=== PATIENT | male | born 1960 | race Hispanic/Latino ===

== ENCOUNTER 2017-02-23 16:59 | Emergency (ER) | payer MEDICAID, OTHER ==
[2017-02-23 16:59] VITALS: BMI 20.2
[2017-02-23 17:10] VITALS: BP 123/79; PULSE 99; RESP 15; TEMP 98; O2SAT 97
--- NOTE | 2017-02-23 17:28 | C.PDOC ---
History Of Present Illness 56 year old male presents to the ED requesting alcohol detox. Patient notes he is on the wait list for detox at [facility] and will be accepted in 4 days. He has no physical complaints at this time and denies suicidal ideation, homicidal ideation, depression, or any other complaints at this time. Time Seen by Provider: 02/23/17 17:11 Chief Complaint (Nursing): Substance Abuse History Per: Patient History/Exam Limitations: no limitations Onset/Duration Of Symptoms: Hrs Current Symptoms Are (Timing): Still Present Suicide/Self Injury Attempted (Context): None Modifying Factor(s): Alcohol Associated Symptoms: denies: Depression, Suicidal Thoughts Past Medical History Reviewed: Historical Data, Nursing Documentation, Vital Signs Vital Signs: Last Vital Signs Temp 98 F 02/23/17 17:10 Pulse 99 H 02/23/17 17:10 Resp 15 02/23/17 17:10 BP 123/79 02/23/17 17:10 Pulse Ox 97 02/23/17 17:34 - Medical History PMH: Anxiety, Atrial Fibrillation, Back Problems Surgical History: Back Surgery - [facility] Procedures DETOXIFICATION SERVICES FOR SUBSTANCE ABUSE TREATMENT (09/27/16) Family History: States: Unknown Family Hx - Social History Hx Alcohol Use: Yes Hx Substance Use: No - Immunization History Hx Tetanus Toxoid Vaccination: No Hx Influenza Vaccination: No Hx Pneumococcal Vaccination: No Review Of Systems Except As Marked, All Systems Reviewed And Found Negative. Constitutional: Positive for: Other (+Detox). Negative for: Fever, Chills Cardiovascular: Negative for: Chest Pain Respiratory: Negative for: Shortness of Breath Physical Exam - Physical Exam Appears: Non-toxic, No Acute Distress, Other (+AOB) Skin: Normal Color, Warm, Dry Head: Atraumatic, Normacephalic Eye(s): bilateral: Normal Inspection Oral Mucosa: Moist Chest: Symmetrical Respiratory: No Accessory Muscle Use Extremity: Normal ROM Neurological/Psych: Oriented x3, Normal Speech, No Other (No tremors noted) ED Course And Treatment O2 Sat by Pulse Oximetry: 97 (Room air) Pulse Ox Interpretation: Normal Medical Decision Making Medical Decision Making: Discussed with patient that there are no detox available and information regarding prescreen and detox centers provided. Patient has no signs of acute withdrawal and offers no other complaints. Patient stable for discharge Disposition - Disposition Disposition: HOME/ ROUTINE Disposition Time: 18:00 Condition: STABLE Additional Instructions: Please call [phone] or [phone] to inquire about our Detox availability , may speak to coordinator Whitley Instructions: Abuse of Alcohol (ED) - Clinical Impression Clinical Impression: Alcohol abuse - PA / CENTER MEDICAL DIRECTOR / Resident Statement MD/DO has reviewed & agrees with the documentation as recorded. - Scribe Statement The provider has reviewed the documentation as recorded by the Scribe Anayeli Arauz. All medical record entries made by the Scribe were at my direction and personally dictated by me. I have reviewed the chart and agree that the record accurately reflects my personal performance of the history, physical exam, medical decision making, and the department course for this patient. I have also personally directed, reviewed, and agree with the discharge instructions and disposition.
== END 2017-02-23 18:00 | disposition home or self-care (01) ==
LOC: EDBD → C.ER 16:59
DX: F10.10 Alcohol abuse, uncomplicated (principal); Y90.9 Presence of alcohol in blood, level not specified

== ENCOUNTER 2017-02-23 20:42 | Observation (INO) | payer OTHER ==
[2017-02-23 20:42] VITALS: BMI 20.2
[2017-02-23 21:03] VITALS: TEMP 98.2
--- NOTE | 2017-02-23 21:12 | C.PDOC ---
History Of Present Illness Patient presents to the emergency room requesting detox for ETOH. Patient was here earlier today and started walking home after being discharged, but couldn' t go home. Patient still wants a detox bed but there aren't any available. Patient just wants a place to stay. Patient denies fever, chills, nausea, vomiting, diarrhea, or any other complaints. Time Seen by Provider: 02/23/17 21:12 Chief Complaint (Nursing): Substance Abuse History Per: Patient History/Exam Limitations: no limitations Onset/Duration Of Symptoms: Hrs Current Symptoms Are (Timing): Still Present Suicide/Self Injury Attempted (Context): None Modifying Factor(s): Alcohol Severity: None Associated Symptoms: denies: Suicidal Thoughts, Suicidal Plan Involuntary Hold By: None Recent travel outside of the [place]: No Past Medical History Reviewed: Historical Data, Nursing Documentation, Vital Signs Vital Signs: Last Vital Signs Temp 98.2 F 02/24/17 03:16 Pulse 97 H 02/24/17 03:16 Resp 16 02/24/17 03:16 BP 137/83 02/24/17 03:16 Pulse Ox 98 02/24/17 03:16 - Medical History PMH: Anxiety, Atrial Fibrillation, Back Problems Denies: Diabetes, Hepatitis, HIV, HTN, Chronic Kidney Disease, Seizures, Sexually Transmitted Disease Surgical History: Back Surgery - [facility] Procedures DETOXIFICATION SERVICES FOR SUBSTANCE ABUSE TREATMENT (09/27/16) Family History: States: Unknown Family Hx - Social History Hx Alcohol Use: Yes Hx Substance Use: No - Immunization History Hx Tetanus Toxoid Vaccination: No Hx Influenza Vaccination: No Hx Pneumococcal Vaccination: No Review Of Systems Constitutional: Positive for: Other (Requesting ETOH detox). Negative for: Fever, Chills Gastrointestinal: Negative for: Nausea, Vomiting, Diarrhea Physical Exam - Physical Exam Appears: Non-toxic, No Acute Distress Skin: Warm, Dry Extremity: Normal ROM, No Tenderness Neurological/Psych: Oriented x3, Normal Speech, Normal Cognition ED Course And Treatment O2 Sat by Pulse Oximetry: 100 Pulse Ox Interpretation: Normal Progress Note: Patient is requesting detox for ETOH. There aren't any beds available. Patient just wants a place to stay. Reevaluation Time: 05:54 Reassessment Condition: Improved ED OBSERVATION Discharge: Yes Date of observation admission: 02/23/17 Time of observation admission: 21:15 - Observation admission statement Patient is being placed in observation because:: homeless - Goals of Observation Goals of observation are:: social service - Progress Note Progress Note: 02/23/17 21:15 vitals stable, no complaints 02/23/17 23:16 no complaints 02/24/17 01:14 vitals stable Disposition Counseled Patient/Family Regarding: Studies Performed, Diagnosis, Need For Followup - Disposition Disposition: HOME/ ROUTINE Disposition Time: 21:12 Condition: FAIR - Clinical Impression Clinical Impression: Alcohol abuse, Alcohol dependence - Scribe Statement The provider has reviewed the documentation as recorded by the Deejay Beckham Provider Scribe Attestation: All medical record entries made by the Deejay were at my direction and personally dictated by me. I have reviewed the chart and agree that the record accurately reflects my personal performance of the history, physical exam, medical decision making, and the department course for this patient. I have also personally directed, reviewed, and agree with the discharge instructions and disposition. Decision To Admit - . Patient Diagnosis: Alcohol dependence, Alcohol abuse
[2017-02-24 03:17] VITALS: RESP 16
[2017-02-24 06:08] VITALS: BP 138/86; PULSE 98; O2SAT 97
== END 2017-02-24 05:57 | disposition home or self-care (01) ==
LOC: EDBD → C.ER 20:42 → C.9OBSV 21:14
PROVIDERS: ADMIT Emergency Medicine; ATTEND Emergency Medicine
DX: F10.220 Alcohol dependence with intoxication, uncomplicated (principal); Y90.9 Presence of alcohol in blood, level not specified; Z59.0 Homelessness; I48.91 Unspecified atrial fibrillation
CPT/HCPCS: 82948; 99285; G0378

== ENCOUNTER 2017-05-07 17:26 | Inpatient (IN) | payer MEDICAID, OTHER ==
[2017-05-07 17:27] VITALS: BMI 20.2
[2017-05-07 18:16] LABS: BASO # 0.1 K/uL (0.0-0.2); BASO % 0.7 % (0.0-2.0); EOS # 0.1 K/uL (0.0-0.7); EOS % 1.1 % (0.0-4.0); HEMOGLOBIN 14.3 g/dL (12.0-18.0); LYMPH % 30.9 % (20.0-40.0); MEAN CORPUSCULAR HEMOGLOBIN 32.8 pg (27.0-31.0); MEAN CORPUSCULAR HGB CONC 34.2 g/dL (33.0-37.0); MEAN PLATELET VOLUME 7.3 fL (7.2-11.7); MONO # 0.8 K/uL (0.0-0.8); MONO % 8.1 % (0.0-10.0); NEUT # 5.8 K/uL (1.8-7.0); NEUT % 59.2 % (50.0-75.0); RBC 4.36 Mil/uL (4.40-5.90); RED CELL DISTRIBUTION WIDTH 13.7 % (11.5-14.5); WHITE BLOOD COUNT 9.7 K/uL (4.8-10.8)
[2017-05-07 18:18] LABS: URINE BILIRUBIN NEGATIVE (NEGATIVE); URINE BLOOD NEGATIVE (NEGATIVE); URINE CLARITY Clear (Clear); URINE COLOR Straw (YELLOW); URINE GLUCOSE (UA) NORMAL (Normal); URINE LEUKOCYTE ESTERASE NEG Leu/uL (Negative); URINE NITRATE NEGATIVE (NEGATIVE); URINE PROTEIN NEGATIVE (NEGATIVE); URINE UROBILINOGEN NORMAL mg/dL (0.2-1.0)
--- NOTE | 2017-05-07 18:23 | C.PDOC ---
History Of Present Illness Patient is a 56 y/o male that presents to the ED requesting detox from alcohol. Patient is pre-screened for detox. Patient states his last drink was this morning. Patient complains of depression, and panic attacks due to personal stressor. Otherwise, denies any physical complaints at this time. Pt denies having any withdrawal seizures in the past. Time Seen by Provider: 05/07/17 18:00 Chief Complaint (Nursing): Substance Abuse History Per: Patient History/Exam Limitations: no limitations Onset/Duration Of Symptoms: Gradual Current Symptoms Are (Timing): Still Present Suicide/Self Injury Attempted (Context): None Modifying Factor(s): Alcohol Severity: None Pain Scale Rating Of: 0 Associated Symptoms: Depression. denies: Suicidal Thoughts Involuntary Hold By: None Recent travel outside of the [place]: No Additional History Per: Patient Past Medical History Reviewed: Historical Data, Nursing Documentation, Vital Signs Vital Signs: Last Vital Signs Temp 98.1 F 05/07/17 17:30 Pulse 116 H 05/07/17 17:30 Resp 16 05/07/17 17:30 BP 122/86 05/07/17 17:30 Pulse Ox 98 05/07/17 18:26 - Medical History PMH: Anxiety, Atrial Fibrillation, Back Problems Denies: Diabetes, Hepatitis, HIV, HTN, Chronic Kidney Disease, Seizures, Sexually Transmitted Disease Surgical History: Back Surgery - [facility] Procedures DETOXIFICATION SERVICES FOR SUBSTANCE ABUSE TREATMENT (09/27/16) Family History: States: Unknown Family Hx - Social History Hx Alcohol Use: Yes Hx Substance Use: No - Immunization History Hx Tetanus Toxoid Vaccination: No Hx Influenza Vaccination: No Hx Pneumococcal Vaccination: No Review Of Systems Except As Marked, All Systems Reviewed And Found Negative. Constitutional: Negative for: Fever, Chills Cardiovascular: Negative for: Chest Pain, Palpitations Respiratory: Negative for: Shortness of Breath Gastrointestinal: Negative for: Nausea, Vomiting, Abdominal Pain Neurological: Negative for: Weakness, Numbness, Seizures, Headache, Dizziness Psych: Positive for: Anxiety, Depression. Negative for: Suicidal ideation, Withdrawal Physical Exam - Physical Exam Appears: Non-toxic, No Acute Distress Skin: Normal Color, Warm, Dry Head: Atraumatic, Normacephalic Eye(s): bilateral: Normal Inspection, EOMI Neck: Normal ROM, Supple Chest: Symmetrical, No Tenderness Cardiovascular: Rhythm Regular, No Murmur Respiratory: Normal Breath Sounds, No Rales, No Rhonchi, No Wheezing Gastrointestinal/Abdominal: Soft, No Tenderness Extremity: Normal ROM Neurological/Psych: Oriented x3, Normal Speech, Normal Cognition ED Course And Treatment - Laboratory Results Result Diagrams: 05/07/17 18:12 05/07/17 18:12 Lab Interpretation: No Acute Changes O2 Sat by Pulse Oximetry: 98 (on RA) Pulse Ox Interpretation: Normal Progress Note: Labs ordered and reviewed. Patient medically cleared for detox admission. Reevaluation Time: 23:55 Reassessment Condition: Improved Disposition - Disposition Disposition: HOSPITALIZED Disposition Time: 23:54 Condition: STABLE - POA Present On Arrival: None - Clinical Impression Clinical Impression: Alcohol dependence, Alcohol abuse - Scribe Statement The provider has reviewed the documentation as recorded by the Scribivon Gonzalez All medical record entries made by the Arjunibivon were at my direction and personally dictated by me. I have reviewed the chart and agree that the record accurately reflects my personal performance of the history, physical exam, medical decision making, and the department course for this patient. I have also personally directed, reviewed, and agree with the discharge instructions and disposition.
[2017-05-07 18:25] LABS: BARBITURATES, UR NEGATIVE (NEGATIVE)
[2017-05-07 18:26] LABS: BENZODIAZEPINES, UR NEGATIVE (NEGATIVE)
[2017-05-07 18:28] LABS: ALBUMIN 4.2 g/dL (3.5-5.0)
[2017-05-07 18:29] LABS: OPIATES, UR NEGATIVE (NEGATIVE); PHENCYCLIDINE, UR NEGATIVE (NEGATIVE)
[2017-05-07 18:31] LABS: ALB/GLOB RATIO 1.2 (1.0-2.1); AST/SGOT 98 U/L (17-59); GFR AFRICAN-AMERICAN > 60; GFR NON-AFRICAN AMERICAN > 60
[2017-05-07 18:32] LABS: ALT/SGPT 42 U/L (21-72); BLOOD UREA NITROGEN 11 mg/dL (9-20); CALCIUM 8.7 mg/dl (8.6-10.4)
[2017-05-08] MEDS ORDERED: Aluminum Hydroxide/Magnesium Hydroxide Susp (30 mL) PO PRN (04:56)
[2017-05-08] MEDS: Multiple Vitamins Tab PO SCH (09:22)
--- NOTE | 2017-05-08 13:28 | PCM.PSYCH ---
Initial Psychiatric Evaluation - Initial Psychiatric Evaluation Type of Admission: Voluntary Legal Status: Capacity Chief Complaint (in patient's own words): "This is my last detox. 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 His house is in [facility]. He is here for alcohol withdrawal, again. He was here in 2016 several times but only went to meetings due to not having money to afford co-pays for outpt care, IOP etc. He is tremulous and sweating again and detox started. He admits to drinking "a lot" every day. He relapsed weeks ago. He has a very long history of alcohol use since age 17 with complications and many negative consequences. He denies drug use but smokes 1 pack per day cigarettes. He also reports some depressive sxs and anxiety. He is not suicidal but he feels depressed Past psych history anxiety and depression. No admissions Family psych history: Mother had depression, brother and grandparents and 2 uncles had alcohol dependence. Medical history: A.fib couple of times. Current Medications: Active Medications Generic Name Dose Route Start Last Admin Trade Name Freq PRN Reason Stop Dose Admin Al Hydrox/Mg Hydrox/Simethicone 30 ml 05/08/17 04:56 Maalox 30 Ml PO 05/13/17 04:57 Q8 PRN Indigestion / Heartburn Chlordiazepoxide 25 mg 05/08/17 12:00 05/08/17 13:08 Librium PO 05/12/17 11:59 25 mg Q6 JAZZY Administration Taper Chlordiazepoxide 25 mg 05/08/17 08:28 05/08/17 09:23 Librium PO 25 mg Q4H PRN Administration Alcohol Withdrawal Clonidine HCl 0.1 mg 05/08/17 08:27 05/08/17 13:10 Catapres PO 0.1 mg Q4H PRN Administration Symptoms of alcohol withdrawl Folic Acid 1 mg 05/08/17 10:00 05/08/17 09:22 Folic Acid PO 1 mg DAILY JAZZY Administration Gabapentin 100 mg 05/08/17 10:00 05/08/17 13:08 Neurontin PO 100 mg TID JAZZY Administration Hydroxyzine HCl 50 mg 05/08/17 08:29 Atarax PO Q6H PRN Anxiety Ibuprofen 600 mg 05/08/17 08:29 Motrin Tab PO Q6H PRN Pain, moderate (4-7) Multivitamins 1 tab 05/08/17 10:00 05/08/17 09:22 Hexavitamin PO 1 tab DAILY JAZZY Administration Nicotine 1 patch 05/08/17 13:15 05/08/17 13:10 Nicoderm Cq TD 1 patch DAILY JAZZY Administration Thiamine HCl 100 mg 05/08/17 10:00 05/08/17 09:23 Vitamin B1 Tab PO 100 mg DAILY JAZZY Administration Trazodone HCl 100 mg 05/08/17 08:27 Desyrel PO HS PRN Insomnia Past Psychiatric History - Past Psychiatric History Previous Treatment History: None Pertinent Medical Hx (Current Medical&Sleep Prob, Allergies): Allergies Allergy/AdvReac Type Severity Reaction Status Date / Time No Known Allergies Allergy Verified 05/07/17 17:30 Escitalopram [Lexapro] 5 mg PO DAILY #30 tab 09/30/16 traZODone [Desyrel] 100 mg PO HS PRN #30 tab 09/30/16 Gabapentin 300 mg PO BID 02/23/17 Review of Systems - Psychiatric Psychiatric: Abnormal Sleep Pattern, Anhedonia, Anxiety, Depression, Difficulty Concentrating. absent: Hallucinations, Homicidal Ideation, Hopelessness, Suicidal Ideation Mental Status Examination - Personal Presentation Personal Presentation: Looks stated age - Affect Affect: Constricted - Motor Activity Motor Activity: Calm - Reliability in Providing Information Reliability in Providing Information: Good - Speech Speech: Organized - Mood Mood: Depressed, Anxious - Formal Thought Process Formal Thought Process: No Impairment - Cognitive Functions Orientation: Person, Place, Situation, Time Sensorium: Alert Attention/Concentration: Attentive Estimate of Intelligence: Average Judgement: Intact, as evidence by: Insight regarding need for hospitalization Memory: Recent intact, as evidence by: Ability to recall events of the day, Remote impaired as evidenced by: Inability to recall sig life events - Risk Risk: Seizure, Withdrawal, Diminished functioning - Strength & Assets Inventory Strength & Assets Inventory: Employment history, Cooperative - Limitations Limitations: Living alone DSM 5 DX - DSM 5 DSM 5 Diagnosis: Alcohol withdrawal Alcohol use d/o - severe Major depressive d/o - recurrent, moderate - Recommended/Plan of Treatment Treatment Recommendations and Plan of Treatment: Librium detox Gabapentin for augmentation As needed meds and vitamins Attend groups and activities CT for abstinence and CBT for relapse prevention Support and psychoeducation Consider and encourage MAT Refer to after care Nancy ca trazodone for depression and insomnia CBT and supportive tx for depression too Consider SSRI 33 min Projected ELOS: 4 days Prognosis: good with treatment Discharge Plan and Discharge Criteria: No wdw sxs Refer to IOP
[2017-05-08 15:12] LABS: HEPATITIS B SURFACE AG NEGATIVE (NEGATIVE)
[2017-05-08 15:17] LABS: HEPATITIS A IGM NEGATIVE (NEGATIVE)
[2017-05-08 15:18] LABS: HEPATITIS B CORE AB NEGATIVE (NEGATIVE)
[2017-05-08 15:30] LABS: HEPATITIS C ANTIBODY NEGATIVE (NEGATIVE)
[2017-05-09] MEDS: Multiple Vitamins Tab PO SCH (09:26)
--- NOTE | 2017-05-09 10:54 | PCM.PYCHPN ---
Psychiatric Progress Note - Psychiatric Progress Note Patient seen today, length of contact: 15 min Patient Chief Complaint: I am feeling much better. Problems Identified/Issues Discussed: Patient seen and evaluated, chart reviewed and discussed with the nurse. Supportive therapy and psychoeducation were given. Patient reports improvement in his mood and improvement in the withdrawal symptoms. However, he still reports nausea, anxiety and headaches. Patient denies any suicidal ideation or homicidal ideation. He denies any auditory or visual hallucinations. He is tolerating the withdrawal medications and denies any side effects. Medication Change: Yes Medical Record Reviewed: Yes Mental Status Examination - Cognitive Function Orientation: Person, Place, Situation, Time Memory: Intact Attention: WNL Concentration: WNL Association: WNL Fund of Knowledge: Poor - Mood Mood: Anxious - Affect Affect: Constricted - Speech Speech: Soft - Formal Thought Process Formal Thought Process: No Impairment - Suicidal Ideation Suicidal Ideation: No - Homicidal Ideation Homicidal Ideation: No Goal/Treatment Plan - Goal/Treatment Plan Need for Continued Stay: Discharge may exacerbated symptoms, Severe functional impairment Progress Toward Problem(s) and Goals/Treatment Plan: Alcohol withdrawal Alcohol use d/o - severe Major depressive d/o - recurrent, moderate Librium detox Gabapentin for augmentation As needed meds and vitamins Attend groups and activities SD for abstinence and CBT for relapse prevention Support and psychoeducation Consider and encourage MAT Refer to after care Nancy ca trazodone for depression and insomnia CBT and supportive tx for depression too Consider SSRI - Smoking Cessation Smoking Cessation Initiated: No
[2017-05-10] MEDS: Multiple Vitamins Tab PO SCH (10:18)
--- NOTE | 2017-05-10 15:08 | PCM.PYCHPN ---
Psychiatric Progress Note - Psychiatric Progress Note Patient seen today, length of contact: 16 min Patient Chief Complaint: "I know I can stop. I want to stop." Problems Identified/Issues Discussed: The pt is seen, chart reviewed and case discussed with staff. The pt was in [facility] for 24 hrs this weekend and was given Ativan. He reports that he went home and starting drinking which caused him to seek detox. He is considering IOP for his after care. Support given, CBT and WA used briefly. No new symptoms reported, improving slowly and needs more time. Medication Change: Yes (detox changes daily) Medical Record Reviewed: Yes Mental Status Examination - Cognitive Function Orientation: Person, Place, Situation, Time Memory: Intact Attention: WNL Concentration: WNL Association: WNL Fund of Knowledge: Poor - Mood Mood: Anxious - Affect Affect: Constricted - Speech Speech: Soft - Formal Thought Process Formal Thought Process: No Impairment - Suicidal Ideation Suicidal Ideation: No - Homicidal Ideation Homicidal Ideation: No Goal/Treatment Plan - Goal/Treatment Plan Need for Continued Stay: Discharge may exacerbated symptoms, Severe functional impairment Progress Toward Problem(s) and Goals/Treatment Plan: Alcohol withdrawal Alcohol use d/o - severe Major depressive d/o - recurrent, moderate Librium detox Gabapentin for augmentation As needed meds and vitamins Attend groups and activities WA for abstinence and CBT for relapse prevention Support and psychoeducation Consider and encourage MAT Refer to after care Seroquel and trazodone for depression and insomnia CBT and supportive tx for depression too Consider SSRI Estimated Date of D/C: 05/11/17
--- NOTE | 2017-05-11 08:35 | PCM.PYCHDC ---
Mental Status Examination - Mental Status Examination Orientation: Person, Place, Situation, Time Memory: Intact Mood: Neutral Affect: Constricted Speech: Appropriate Attention: WNL Concentration: WNL Association: WNL Fund of Knowledge: WNL Formal Thought Process: No Impairment Suicidal Ideation: No Current Homicidal Ideation?: No Discharge Summary - Discharge Note Reason for Hospitalization: Alcohol detox Consultations:: List each consultation separately and include: 1. Reason for request. 2. Findings. 3. Follow-up Summary of Hospital Course include:: 1. Description of specific treatment plan utilized for patients during their course of treatmen. 2. Summarize the time- course for resolution of acute symptoms and/or regressed behaviors. 3. Describe issues identified and worked on during hospitalization. 4. Describe medication utilized. 5. Describe medical problems identified and treated. 6. 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 His house is in [facility]. He is here for alcohol withdrawal, again. He was here in 2016 several times but only went to meetings due to not having money to afford co-pays for outpt care, [facility] etc. He is tremulous and sweating again and detox started. He admits to drinking "a lot" every day. He relapsed weeks ago. He has a very long history of alcohol use since age 17 with complications and many negative consequences. He denies drug use but smokes 1 pack per day cigarettes. He also reports some depressive sxs and anxiety. He is not suicidal but he feels depressed Past psych history anxiety and depression. No admissions Family psych history: Mother had depression, brother and grandparents and 2 uncles had alcohol dependence. Medical history: A.fib couple of times. Upon discharge The pt was admitted and started on treatment with psychotherapy, support, psychoeducation and medications. MO and CBT used. The pt attended groups and activities. All the risks and benefits of medications are discussed and the patient understood and agreed. The pt improved with treatments provided. After care discussed and pt will go to the [facility], [facility] in [place] after discharge. He plans to use [employer] to drive to appointments. - Final Diagnosis (DSM 5) Condition upon Discharge: STABLE DSM 5: Alcohol withdrawal Alcohol use d/o - severe Depressive d/o - unspecified Disposition: HOME/ ROUTINE Follow-up Treatment Plan: Continue below medications after discharge. Follow after care as IOP at [facility] in [place]. Use relapse prevention skills. Return to ER or call 911 if suicidal, homicidal or symptoms relapse. Stay away from stress, alcohol and drugs. See primary doctor once a year. Prescriptions/Medication Reconciliation: Escitalopram [Lexapro] 10 mg PO DAILY #30 tab Gabapentin [Neurontin] 300 mg PO TID #90 cap QUEtiapine [Seroquel] 100 mg PO HS #30 tab traZODone [Desyrel] 100 mg PO HS PRN #30 tab PRN Reason: Insomnia - Smoking Cessation Smoking Cessation Medication prescribed: No - Antipsychotic Medications Pt discharged on 2 or more routine antipsychotic medications: No
[2017-05-11] MEDS: Multiple Vitamins Tab PO SCH (09:27)
[2017-05-11 11:32] VITALS: BP 96/62; PULSE 98; RESP 20; TEMP 97.6; O2SAT 99
== END 2017-05-11 10:45 | disposition home or self-care (01) | DRG 750 ==
LOC: EDBD 17:26 → C.ER 17:26 → C.7D 23:53 → EDBD 23:53
PROVIDERS: ADMIT Psychiatry & Neurology Psychiatry; ATTEND Psychiatry & Neurology Psychiatry
PROC: HZ2ZZZZ Detoxification Services for Substance Abuse Treatment (ICD-10-PCS; principal; 2017-05-07)
PROC: GZ56ZZZ Individual Psychotherapy, Supportive (ICD-10-PCS; 2017-05-07)
DX: F10.230 Alcohol dependence with withdrawal, uncomplicated (principal); F33.1 Major depressive disorder, recurrent, moderate; F10.220 Alcohol dependence with intoxication, uncomplicated; Y90.7 Blood alcohol level of 200-239 mg/100 ml; Z68.20 Body mass index [BMI] 20.0-20.9, adult; G47.00 Insomnia, unspecified; I48.91 Unspecified atrial fibrillation